=== PATIENT | male | born 1985 | race Caucasian/White ===

== ENCOUNTER 2024-02-14 00:15 | Emergency (ER) | payer OTHER ==
[2024-02-14 00:30] VITALS: BP 194/105; PULSE 74; RESP 18; TEMP 98.4; BMI 29.7
[2024-02-14] MEDS ORDERED: predniSONE 20 MG TABLET (UD) ONE (00:49)
[2024-02-14] MEDS ORDERED: valACYclovir HCL 500 MG TABLET (FP) ONE (00:50)
[2024-02-14] MEDS: predniSONE 20 MG TABLET (UD) PO ONE (00:54)
[2024-02-14] MEDS: valACYclovir HCL 500 MG TABLET (FP) PO ONE (00:54)
== END 2024-02-14 00:57 | disposition home or self-care (01) ==
LOC: JER 00:15
DX: G51.0 Bell's palsy (principal)
CPT/HCPCS: 99283-25